=== PATIENT | female | born 1975 | race Caucasian/White ===

== ENCOUNTER 2016-10-14 08:41 | Day surgery (SDC) | payer OTHER ==
[~2016-10-14] VITALS: Ht 177.8 cm; Wt 83.9 kg
[~2016-10-14 08:41] MED LIST: /CIPR75TA OR; /MOM400 PO; ACET50TA PO; ANUS2.5C2 EXT; DOCU10ELUD PO; FLAG500T OR; IBUP600T26 PO; NUVA RING; PRENTAB66 PO
[2016-10-14] MEDS ORDERED: LR 1,000 ML IV ONE (09:00)
[2016-10-14] MEDS ORDERED: LR 1,000 ML IV SCH ×3 (09:00→12:15)
[2016-10-14] MEDS ORDERED: NUVAMIS2 VA (09:16)
[2016-10-14 09:37] LABS: CONTROL LINE HCG INT CTR LINE PRESENT
[2016-10-14] MEDS ORDERED: PROPOFOL 200 MG/20 ML VIAL As Ordered ONE (10:46)
[2016-10-14] MEDS ORDERED: MIDAZOLAM INJ 2 MG/2 ML VIAL (J2250) As Ordered ONE (10:46)
[2016-10-14] MEDS ORDERED: fentaNYL 100 MCG/2 ML INJECTION (J3010) As Ordered ONE (10:46)
[2016-10-14] MEDS ORDERED: LIDOCAINE 2% INJ 100 MG/5 ML SDV (FOR ANES.) As Ordered ONE (10:46)
[2016-10-14] MEDS ORDERED: DESFLURANE 240 ML INHALANT As Ordered ONE (10:46)
[2016-10-14] MEDS ORDERED: ROCURONIUM BROMIDE 50 MG/5 ML VIAL/SYRINGE As Ordered ONE (10:46)
[2016-10-14] MEDS ORDERED: dexameTHASONE 4 MG/ML 1ML VIAL (J1100) As Ordered ONE (10:47)
[2016-10-14] MEDS ORDERED: GLYCOPYRROLATE INJ 0.2 MG/ML 2 ML VIAL As Ordered ONE (11:00)
[2016-10-14] MEDS ORDERED: KETOROLAC 60 MG/2 ML VIAL (J1885) As Ordered ONE (11:00)
[2016-10-14] MEDS ORDERED: ONDANSETRON 4MG/2ML VIAL (J2405) As Ordered ONE (11:00)
[2016-10-14] MEDS ORDERED: NEOSTIGMINE 1MG/ML 5 ML SYRINGE (J2710) As Ordered ONE (11:00)
[2016-10-14] MEDS ORDERED: HYDROmorphone HCL 2 MG/ML 1ML VIAL (J1170) As Ordered ONE (11:00)
[2016-10-14] MEDS ORDERED: PHENYLephrine HCL 500 MCG/5 ML (100MCG/ML) SYRINGE (J2370) As Ordered ONE (11:13)
[2016-10-14] MEDS ORDERED: NORCO, ANEXSIA 5/325MG TABLET (HYDROcodone/ACETAMINOPHEN) PO PRN (12:15)
[2016-10-14] MEDS ORDERED: METOCLOPRAMIDE INJ 10MG/2ML VIAL (J2765) IV PRN (12:15)
[2016-10-14] MEDS ORDERED: MEPERIDINE INJ 25 MG/ML VIAL (J2175) IV PRN (12:15)
[2016-10-14] MEDS ORDERED: IBUPROFEN 600 MG TAB PO PRN (12:15)
[2016-10-14] MEDS ORDERED: PERCOCET 5MG/325MG TAB PO PRN (12:15)
[2016-10-14] MEDS ORDERED: ONDANSETRON 4MG/2ML VIAL (J2405) IV PRN (12:15)
[2016-10-14] MEDS ORDERED: fentaNYL 100 MCG/2 ML INJECTION (J3010) IV PRN (12:15)
[2016-10-14 15:10] VITALS: BP 115/66
--- NOTE | 2016-10-15 08:38 | RO ---
DATE OF PROCEDURE: 10/14/2016 PREPROCEDURE DIAGNOSIS/INDICATION FOR SURGERY: Desire for permanent sterilization. POSTOPERATIVE DIAGNOSIS: Desire for permanent sterilization. PROCEDURE: Laparoscopic bilateral tubal ligation. SURGEON: Dr. Leonela You [employer]URNACE OPERATOR: ANESTHESIA: General endotracheal anesthesia. DESCRIPTION OF PROCEDURE: Amy was brought to the operating room where sufficient general endotracheal anesthesia was induced. She was prepped, draped and positioned in the usual sterile fashion. The uterus was sounded to 10 cm. The bladder was emptied and attention was then turned to the abdomen. A transverse and semilunar incision was made below the umbilicus. Sharp and blunt dissection were continued through the subcutaneous tissues to the level of the rectus fascia, which was elevated to the wound using Murray clamps and transversely incised using a scalpel and secured with #0 Vicryl retention suture. The peritoneum was then entered bluntly under direct visualization in an open laparoscopic technique. The Ilya cannula was then placed and secured in place with the #0 Vicryl retention suture. CO2 insufflation was then begun. After adequate CO2 insufflation, the peritoneal cavity was visualized. There were normal shiny peritoneal surfaces throughout. There was no excrescence, exudate, nor ascites. The uterus was multiparous size and is photographed. The ovaries were normal in appearance. There were some minor adhesions at the descending colon that do not alter its location, particularly, and these are quite common and appear to be GI related. The upper abdomen is normal in appearance. The ovaries were normal in appearance. Tubes were normal in appearance. Over the left uterosacral ligament and the area of the ureter there are some minor endometriotic implants. The cul-de-sac itself was clear. Those endometriotic implants were photographed. The anterior cul-de-sac was also clear. The right side is clear, especially the left uterosacral. Neither ovarian fossa had any significant endometriotic looking lesions, nor did the ovaries, but there are definitely random endometriotic looking lesions over the area. The uterosacral on the left, just lateral to it, over the typical region of the ureter. Because of the proximity to the ureter, these were left alone. Attention was turned to the tubal ligation. Bipolar cautery was used to cauterize the tubes in multiple locations, at least four, and the tubes were photographed after cauterization. Both tubes were cauterized carefully and after completion of bilateral tubal ligation via bipolar cautery and after photographing, the procedure was then ended with the CO2 allowed to escape the abdomen. The fascial wound was closed with the #0 Vicryl retention sutures and the skin closed with #3-0 Vicryl in a subcuticular stitch and a dry sterile dressing then applied. Estimated blood loss for the procedure: Less than 5 mL. Fluid replacement was crystalloid. Complications: None. Condition and Disposition: Amy tolerated the procedure well and was recovering in the recovery room in good condition.
== END 2016-10-14 15:20 | disposition home or self-care (01) ==
LOC: M SDC 08:41
PROVIDERS: ATTEND Obstetrics & Gynecology
DX: Z30.2 Encounter for sterilization (principal); Z88.0 Allergy status to penicillin
CPT/HCPCS: 36415; 58670; 84703; J1100; J1170; J1885; J2250; J2370; J2405; J2710; J2765; J3010

== ENCOUNTER 2021-06-11 23:17 | Emergency (ER) | payer OTHER, SELFPAY ==
[~2021-06-11] VITALS: Ht 177.8 cm; Wt 84.1 kg
[2021-06-11 23:17] VITALS: BP 127/80
[~2021-06-11 23:17] MED LIST changes: -/MOM400 PO; -ACET50TA PO; -DOCU10ELUD PO; +DOCU5LIQ PO; +MAPA500T17 PO; +MILK10SU PO; +NUVAMIS2 VA
== END 2021-06-12 01:37 | disposition left against medical advice (07) ==
LOC: M ED 23:17
DX: Z53.21 Procedure and treatment not carried out due to patient leaving prior to being seen by health care provider (principal)

== ENCOUNTER 2024-04-29 07:51 | Inpatient (IN) | payer OTHER, SELFPAY ==
[~2024-04-29] VITALS: Ht 177.8 cm; Wt 94.5 kg
[~2024-04-29 07:51] MED LIST changes: +ETON1VAG7 VA; -NUVAMIS2 VA
[2024-04-29 08:29] LABS: HEMATOCRIT 42.1 % (36.0-47.0); HEMOGLOBIN 13.7 g/dl (12.0-15.5); MEAN CORPUSCULAR HEMOGLOBIN 25.5 pg (27.0-33.0); MEAN CORPUSCULAR HGB CONC 32.5 g/dl (32.0-36.5); MEAN CORPUSCULAR VOLUME 78.4 fl (80.0-96.0); PLATELET COUNT, AUTOMATED 315 10^3/uL (150-450); RED BLOOD COUNT 5.37 10^6/uL (4.00-5.40); WHITE BLOOD COUNT 12.2 10^3/uL (4.0-10.0)
[2024-04-29 08:58] LABS: ETHYL ALCOHOL (ETHANOL) 0.009 % (0.000-0.010)
[2024-04-29 08:59] LABS: ALBUMIN 3.7 G/DL (3.2-5.2); ALKALINE PHOSPHATASE 106 U/L (35-104); ALT/SGPT 25 U/L (7.0-40); AST/SGOT 38 U/L (<34); BILIRUBIN,DIRECT 0.5 MG/DL (<0.4); BILIRUBIN,TOTAL 1.5 MG/DL (0.3-1.2); BLOOD UREA NITROGEN 9 MG/DL (9-23); CALCIUM LEVEL 9.1 MG/DL (8.5-10.1); CARBON DIOXIDE LEVEL 22 MMOL/L (20-31); CHLORIDE LEVEL 98 MMOL/L (98-107); CREATININE FOR GFR 0.57 MG/DL (0.55-1.30); GLOMERULAR FILTRATION RATE > 60.0 (>58); GLUCOSE, FASTING 153 MG/DL (60-100); POTASSIUM SERUM 3.6 MMOL/L (3.5-5.1); SALICYLATE LEVEL < 3.0 MG/DL (<30); SODIUM LEVEL 137 MMOL/L (136-145); TOTAL PROTEIN 8.1 G/DL (5.7-8.2)
[2024-04-29 09:01] LABS: THYROID STIMULATING HORMONE 2.133 uIU/ML (0.55-4.78)
[2024-04-29 09:26] LABS: AMPHETAMINES LEVEL URINE NEGATIVE (NEGATIVE); BARBITURATES URINE NEGATIVE (NEGATIVE); BENZODIAZEPINES URINE NEGATIVE (NEGATIVE); CANNABINOIDS URINE NEGATIVE (NEGATIVE); COCAINE METABOLITE URINE NEGATIVE (NEGATIVE); METHADONE URINE NEGATIVE (NEGATIVE); OPIATES URINE NEGATIVE (NEGATIVE); PHENCYCLIDINE URINE NEGATIVE (NEGATIVE)
[2024-04-29] MEDS: ONDANSETRON 4MG ORAL DISINTEGRATING TAB PO ONE (09:30)
[2024-04-29] MEDS: hydrOXYzine 50 MG TAB PO ONE (09:30)
[2024-04-29 15:15] VITALS: BP 135/85; TEMP 97.5; O2SAT 99
[2024-04-29] MEDS ORDERED: HOME MED LIST COMPLETE! XX SCH (16:00)
[2024-04-29] MEDS ORDERED: MOM 30ML SUSPENSION UDC PO PRN (17:20)
[2024-04-29] MEDS ORDERED: IBUPROFEN 400MG TAB PO PRN (17:20)
[2024-04-29] MEDS ORDERED: diphenhydrAMINE 25MG CAP PO PRN (17:20)
[2024-04-29] MEDS ORDERED: OLANZapine ORAL DISINTEGRATING TAB 5MG PO PRN (17:20)
[2024-04-29] MEDS: traZODone 50 MG TAB PO PRN (20:44)
[2024-04-29] MEDS: MAALOX 30 ML SUSP *UDC PO PRN (21:06)
[2024-04-29] MEDS: SIMETHICONE 80MG CHEW TAB PO PRN (23:16)
[2024-04-30 06:25] VITALS: BP 137/74; TEMP 98.1; O2SAT 100
[2024-04-30] MEDS: PARoxetine 20MG TABLET PO SCH (11:01)
[2024-04-30 15:39] VITALS: BP 135/86; TEMP 98; O2SAT 100
[2024-04-30] MEDS: ACETAMINOPHEN 325 MG TAB PO PRN (21:21)
[2024-05-01 06:20] VITALS: BP 137/62; TEMP 97.8; O2SAT 98
[2024-05-01 16:15] VITALS: BP 132/70; TEMP 98; O2SAT 98
[2024-05-02 06:48] VITALS: BP 140/85; TEMP 97.3; O2SAT 97
[2024-05-02 16:29] VITALS: BP 154/87; TEMP 97.7; O2SAT 99
[2024-05-02] MEDS: RAMELTEON 8 MG TAB (ROZEREM) PO SCH (20:29)
[2024-05-03 06:24] VITALS: BP 148/76; TEMP 98.3; O2SAT 98
[2024-05-03 15:48] VITALS: BP 137/78; TEMP 97.2; O2SAT 99
[2024-05-04] MEDS ORDERED: PARO20TA3 PO (02:25)
[2024-05-04] MEDS ORDERED: TRAZ-252 PO (02:25)
[2024-05-04] MEDS ORDERED: HYDR-3363 PO (02:25)
[2024-05-04 09:01] VITALS: BP 143/65; TEMP 97.5; O2SAT 98
== END 2024-05-04 11:55 | disposition home or self-care (01) | DRG 756 ==
LOC: M ED 07:51 → M ED INP 13:49 → M PSY 15:18
PROVIDERS: ADMIT Psychiatry & Neurology Psychiatry; ATTEND Psychiatry & Neurology Psychiatry
DX: F41.1 Generalized anxiety disorder (principal); F39 Unspecified mood [affective] disorder; R45.851 Suicidal ideations; Z88.0 Allergy status to penicillin; F17.200 Nicotine dependence, unspecified, uncomplicated

== ENCOUNTER → 2024-05-10 | Outpatient (CLI) | payer MEDICAID, SELFPAY ==
[~2024-05-10] MED LIST changes: +HYDR-3363 PO; +PARO20TA3 PO; +TRAZ-252 PO
== END ==
LOC: M OUTALCOH 07:20
PROVIDERS: ATTEND Psychiatry & Neurology Psychiatry
DX: F10.10 Alcohol abuse, uncomplicated (principal)

== ENCOUNTER 2024-06-06 15:00 | Outpatient (RCR) | payer MEDICAID | END 2024-06-13 | LOC: M OUTALCOH 15:00 | PROVIDERS: ATTEND Psychiatry & Neurology Psychiatry | DX: F10.10 Alcohol abuse, uncomplicated (principal) ==

== ENCOUNTER 2024-07-11 15:00 | Outpatient (RCR) | payer MEDICAID ==
[~2024-07-11 15:00] MED LIST changes: +HYDR1CAP25 PO; +PARO20TA4 PO; +TRAZ1TAB10 PO
== END 2024-07-13 ==
LOC: M OUTALCOH 15:00
PROVIDERS: ATTEND Psychiatry & Neurology Psychiatry
DX: F10.10 Alcohol abuse, uncomplicated (principal)
CPT/HCPCS: G0397 ×2

== ENCOUNTER → 2024-10-13 | Outpatient (RCR) | payer OTHER | LOC: M OUTALCOH 09-21 12:44 | PROVIDERS: ATTEND Psychiatry & Neurology Psychiatry | DX: F10.10 Alcohol abuse, uncomplicated (principal) ==